=== PATIENT | male | born 1965 | race African-American/Black ===

== ENCOUNTER 2017-06-12 17:14 | Emergency (ER) | payer MEDICAID, OTHER ==
[~2017-06-12] VITALS: Ht 175.3 cm; Wt 110.0 kg
[2017-06-12 17:17] VITALS: Ht 175.3 cm; Wt 110.0 kg
[2017-06-12] MEDS ORDERED: KETOROLAC 15 MG INJ IM STA (18:15)
--- NOTE | 2017-06-12 18:15 | ERD ---
ER Documentation Chief Complaint Chief Complaint Complains of neck pain x 3 weeks HPI This 52-year-old male patient presents to emergency department for evaluation of right cervical pain worsening x 3 week, she denies any known injury or causative factor, has tried OTC medication with little relief of symptoms. pt reports right paraspinal pain and right trapezial pain, denies nausea, vomiting , fever, chills, denies change in vision or behavior, reports photosensitive states that this is at baseline for him, ROS All systems reviewed and are negative except as per history of present illness. Medications Home Meds Active Scripts Capsaicin (Capsaicin) 42.5 Gm Cream.gm., 1 APPLIC TOP QID, #1 TUB Prov:MIMI,JULIANE 06/12/17 Diazepam* (Valium*) 5 Mg Tablet, 5 MG PO Q8 for MUSCLE SPASMS, #10 TAB Prov:MIMI,JULIANE 06/12/17 Naproxen* (Naprosyn*) 500 Mg Tablet, 500 MG PO BID Y for PAIN AND/OR INFLAMMATION, #20 TAB Prov:MIMI,JULIANE 06/12/17 Allergies Allergies: Coded Allergies: No Known Allergy (Unverified , 06/12/17) Physical Exam Vitals Vital Signs Date Time Temp Pulse Resp B/P Pulse Ox O2 Delivery O2 Flow Rate FiO2 06/12/17 17:17 97.6 76 20 137/88 98 Vitals stable, triage notes reviewed Physical Exam Const: Well-nourished well-appearing well-hydrated 52-year-old male patient no acute distress Head: Atraumatic Eyes: Normal Conjunctiva, PERRLA, EOMI ENT: Panic membranes translucent, nasal mucosa moist, pharynx pink, moist, uvula midline rises and falls with pronation Neck: Nontender over bony prominence, palpable paraspinal tenderness bilaterally, worse on right, palpable trapezial tenderness on right, decreased range of motion with rotation, lateral bending, flexion and extension Resp: Clear to auscultation bilaterally no respiratory distress Cardio: Regular rate and rhythm, no murmurs Abd: Skin: Back: Ext: Neur: Awake and alert Psych: Normal Mood and Affect Results 24 hrs Current Medications Medications (Trade) Dose Ordered Sig/Celena Route PRN Reason Start Time Stop Time Status Last Admin Dose Admin Ketorolac Tromethamine (Toradol) 15 mg ONCE STAT IM 06/12/17 18:15 06/12/17 18:18 DC Procedures/MDM PROCEDURE: Cervical spine series CLINICAL INDICATION: Pain TECHNIQUE: AP lateral and odontoid views of the cervical spine COMPARISON: None available FINDINGS: The visualized prevertebral soft tissues and epiglottis are normal. The spine alignment demonstrates straightening of the normal cervical lordosis with 2 mm anterior subluxation of C3 on C4 and 2 mm posterior subluxation of C6 on C7. Degenerative anterior spondylosis/enthesopathy is present at the C3-T1 levels. No evidence for acute fractures or traumatic subluxations are present. The visualized posterior elements are intact and well aligned. Preservation of vertebral body heights are noted. Moderate to severe disc space height loss is noted at the C4-5 and C5-6 levels and severe disc space height loss at C6-7 and C7-T1. The odontoid view is normal. The imaged lung apices and ribs are normal. IMPRESSION: 1. No acute fractures or traumatic subluxations. 2. Degenerative 2 mm anterior subluxation of C3 on C4 and 2 mm posterior subluxation of C6 and C7. 3. Degenerative anterior spondylosis/degenerative enthesopathy at C3-T1. 4. Moderate to severe disc space height loss at C4-5 and C5-6 and severe disc space height loss at C6-7 and C7-T1. Electronically viewed and signed by .Valeria Benton MD, on 06/12/2017 20: 03 This 52-year-old male patient presents to emergency department for evaluation of right-sided neck ache, pain is reported with movement, palpable spasm, no known reported injury. No cervical muscular skeletal history. Emergency room course includes history and physical exam, pain control with Toradol, patient is driving he will get a prescription for Valium for muscle relaxant, cervical spine x-ray with radiologist interpretation as no acute fracture or traumatic subluxations, degenerative 2 mm anterior subluxation of C3 onto C4 and a 2 mm posterior subluxation of C6 and C7. Degenerative anterior spondylosis degenerative enthesoopathy at C3-T1. Moderate to severe disc space height loss at C4-5 and C5-6 and severe disc space height loss at C6-7 and C7-T1. Plan to discharge patient to follow-up with primary physician for referral to orthopedic surgeon and or physical therapy. Plan to discharge patient home with Naprosyn 500 mg 1 tab p.o. twice daily 10 days, Valium 5 mg 1 tab p.o. every 8 hours as needed topical capsaicin applied to affected areas, rubbing, 3 times daily. Patient instructed to return to emergency room for worsening of current symptoms, numbness or tingling extending down arms to fingers. Patient is stable with no new complaints during ER course, clinically there is no current evidence to suggest meningitis, sepsis, TIA, CVA, cervical mass, spinal infection/abscess or any other emergent condition appearing to require further evaluation or hospitalization. I feel the patient is stable for discharge at this time. I have discussed results, examination findings, the treatment plan with the patient and family present prior to discharge. Indications for emergent reevaluation, side effects of medication were also discussed. All questions were answered. Patient verbalizes understanding and agrees with plan of care. Departure Diagnosis: Primary Impression: DDD (degenerative disc disease), cervical Condition: Good Patient Instructions: Cervical Spine Problems: Disk, Common Spine and Disk Problems Additional Instructions: Thank you for for coming to [facility] for your care today. Please ask your nurse or provider if you have questions about your care today and do not leave until all your questions have been answered. Please use any medications given as directed and follow-up with your doctor (or the doctor you were referred to) in the next 2-3 days. If you do not have a primary care doctor you may follow up at the [facility] (listed below). You may also use motrin and tylenol as needed for fever and/or pain unless instructed otherwise by your provider or nurse. Indications for more urgent follow-up have been discussed, but you may return to the Emergency Department at ANY time for any worrisome or worsening symptoms. If you have abdominal pain, please know that no test or exam you received is perfect and you should follow up within 8 hours for continued pain. If you had any imaging studies today, such as an X-Ray or CT Scan, these studies will be reviewed later by a radiologist. You will be called if there are important findings that were not identified today, so make sure the contact information you provided at registration is correct. If you received any narcotic pain control medicine today, such as Vicodin, Morphine or Dilaudid, your coordination and judgment may be affected for a number of hours. Please do not drive or operate heavy machinery, and you may want someone to assist you at home. If you were given a prescription for narcotic medication, be aware that it is very addictive- use sparingly and only if necessary. JULIANE LE Jun 12, 2017 18:15
--- NOTE | 2017-06-12 20:04 | RADRPT ---
PROCEDURE: Cervical spine series CLINICAL INDICATION: Pain TECHNIQUE: AP lateral and odontoid views of the cervical spine COMPARISON: None available FINDINGS: The visualized prevertebral soft tissues and epiglottis are normal. The spine alignment demonstrates straightening of the normal cervical lordosis with 2 mm anterior subluxation of C3 on C4 and 2 mm p osterior subluxation of C6 on C7. Degenerative anterior spondylosis/enthesopathy is present at the C 3-T1 levels. No evidence for acute fractures or traumatic subluxations are present. The visualized p osterior elements are intact and well aligned. Preservation of vertebral body heights are noted. Mod erate to severe disc space height loss is noted at the C4-5 and C5-6 levels and severe disc space he ight loss at C6-7 and C7-T1. The odontoid view is normal. The imaged lung apices and ribs are normal . IMPRESSION: 1. No acute fractures or traumatic subluxations. 2. Degenerative 2 mm anterior subluxation of C3 on C4 and 2 mm posterior subluxation of C6 and C7. 3. Degenerative anterior spondylosis/degenerative enthesopathy at C3-T1. 4. Moderate to severe disc space height loss at C4-5 and C5-6 and severe disc space height loss at C6-7 and C7-T1. RPTAT: HDC .Valeria Benton MD, MD Date Time Electronically viewed and signed by .Valeria Benton MD, MD on 06/12/2017 20:03 .C/
[2017-06-12] MEDS ORDERED: DIAZ-90 PO (20:27)
[2017-06-12] MEDS ORDERED: NAPR-260 PO (20:27)
[2017-06-12] MEDS ORDERED: CAPS42.510 TOP (20:28)
== END 2017-06-12 20:40 | disposition home or self-care (01) ==
LOC: FTE 17:14
DX: M50.30 Other cervical disc degeneration, unspecified cervical region (principal)
CPT/HCPCS: 72040; Z7502; 99284